=== PATIENT | female | born 1935 | race Caucasian/White ===

== ENCOUNTER 2016-11-08 21:14 | Inpatient (IN) | payer OTHER, BC ==
[~2016-11-08] VITALS: Ht 154.9 cm; Wt 59.3 kg
[~2016-11-08 21:14] MED LIST: ALEN70TA2 PO; ASPI1TAB83 PO; ATOR-54 PO; BROM0.0911 OP; CHOL100010 PO; COEN150C PO; DIGO0.1267 PO; FURO20TA PO; GARL400T4 PO; GLIP-172 PO; LISI10TA PO; LORATAB PO; METF500T PO; METO100T44 PO; MULT-614 PO; NTRGSL4 UT; OFLO0.3S OP; OMEG-112 PO; PRED1SUS3; PRED1SUS3 OPL
[2016-11-08] MEDS ORDERED: SODIUM CHLORIDE 0.9% 1000ML 1,000 ML IV STA (21:52)
[2016-11-08] MEDS ORDERED: MoRPHine SULFATE 2 MG/ML CARP IV STA (21:52)
[2016-11-08] MEDS ORDERED: ONDANSETRON INJ 2 MG/ML 2 ML VIAL IV STA (21:52)
[2016-11-08] MEDS ORDERED: ACETAMINOPHEN 325 MG TAB PO STA (21:52)
[2016-11-08] MEDS ORDERED: SODIUM CHLORIDE 0.9% 250ML 250 ML IV STA (21:52)
[2016-11-08] MEDS ORDERED: ALBUT/IPRATROP 3MG/0.5MG NEB 3 ML VIAL INH STA (21:56)
[2016-11-08] MEDS ORDERED: LABETALOL HCL IV 5 MG/ML 20ML IV STA (21:57)
--- NOTE | 2016-11-08 21:57 | EMERGENCY ROOM VISIT NOTE ---
History Report prepared by Joana: Dorothy Gutierrez Under the Supervision of: Dr. Zulema Jaramillo M.D. First contact with patient: 21:36 Chief Complaint: ILLNESS Stated Complaint: ILLNESS, COUGH, HEADACHE History of Present Illness The patient is a 81 year old female who presents to the Emergency Room with complaints of a worsening illness for the past 3 weeks. She reports a sore throat, cough, fever, and headache. She states that her headache was worse today. Her pain is located in the front of her head, and she rates it as a 6/10 in severity. She started shaking this evening and states that she could barely talk. She was brought to the ED by ambulance. She denies any neck pain, nausea, abdominal pain, back pain, and shortness of breath. Six weeks ago the patient had a bladder stent placed. She became septic shortly afterwards. She states that these symptoms feel similar to the symptoms she experienced with sepsis. The bladder stent is no longer in place. She had a flu shot this year. Source of History: patient, family Onset: 3 weeks ago Position: other (global) Symptom Intensity: 6/10 Quality: other (illness) Timing: worsening Associated Symptoms: + cough, + fevers, + headache, + sorethroat, No SOB, No abdominal pain, No back pain, No nausea, No neck pain Review of Systems See HPI for pertinent positives & negatives. A total of 10 systems reviewed and were otherwise negative. Past Medical & Surgical Medical Problems: (1) CAD (coronary artery disease) (2) CLL (chronic lymphocytic leukemia) (3) DM2 (diabetes mellitus, type 2) (4) History of left heart catheterization (LHC) (5) HLD (hyperlipidemia) (6) HTN (hypertension) (7) Hydronephrosis (8) Osteoporosis (9) Paroxysmal a-fib (10) Pre-syncope Family History Non contributory d/t age Social History Smoking Status: Never Smoker Marital Status: Occupation Status: retired Current/Historical Medications Scheduled Alendronate Sodium (Fosamax), 1 TAB PO WK Aspirin (Aspirin), 1 TAB PO HS Atorvastatin (Lipitor), 40 MG PO QPM Cholecalciferol (Vitamin D), 1,000 INTER.UNIT PO DAILY AT LUNCH Coenzyme Q10 (Ubidecarenone) (Co Q-10), 150 MG PO QPM Furosemide (Lasix), 1 TAB PO QAM Garlic-Calcium (Garlic), 500 MG PO DAILY AT NOON Glipizide (Glipizide Xl), 2.5 MG PO DAILY AT LUNCH Lisinopril (Prinivil), 15 MG PO BID Loratadine (Loratadine Allergy Relief), 10 MG PO QAM Metformin Hcl (Glucophage), 1 TAB PO BID Metoprolol Succ (Toprol Xl) (Toprol-Xl ), 100 MG PO QAM Multiple Vitamins W/ Minerals (Centrum Silver Ultra Wome), 1 TAB PO DAILY AT NOON [id number] Ethyl Esters ([place]-3), 1 CAP PO DAILY AT LUNCH Scheduled PRN Nitroglycerin (Nitrostat), 1 TAB UT UD PRN for Chest Pain Allergies Coded Allergies: No Known Allergies (Unverified , 11/08/16) Physical Exam Vital Signs Date Time Temp Pulse Resp B/P Pulse Ox O2 Delivery O2 Flow Rate FiO2 11/09/16 01:52 72 18 119/58 93 Room Air 11/09/16 00:32 71 18 124/80 94 Room Air 11/08/16 23:41 75 11/08/16 23:37 74 20 136/78 92 Room Air 11/08/16 23:36 93 16 136/78 95 Room Air 11/08/16 23:01 76 18 177/84 99 Nebulizer 11/08/16 21:18 37.7 18 16 215/95 91 Room Air Physical Exam Vital signs reviewed. General: Elderly well-appearing 81 year old female, subtle tremor, warm to touch , in no significant distress. HEENT: No scleral icterus, PERRLA, neck supple. Atraumatic. Cardiovascular: Regular rate and rhythm, no extra sounds. Pulmonary: Clear to auscultation bilaterally, normal work of breathing. Abdomen: Soft, nontender, nondistended, positive bowel sounds. Musculoskeletal: Atraumatic, no peripheral edema. Neurologic: Patient awake alert and oriented x 3, full strength in all 4 extremities. Cranial nerves 2 through 12 grossly intact. Skin: Warm, dry, no rash Medical Decision & Procedures ER Provider Diagnostic Interpretation: Radiology results as stated below per my review and radiologist interpretation: CHEST ONE VIEW PORTABLE HISTORY: rigors, fever COMPARISON: Chest 04/03/2016. FINDINGS: No pneumothorax. No pleural effusions. The heart remains mildly enlarged. Tortuous thoracic aorta. Patchy density within the right lung base. The left lung is essentially clear. No evidence for pulmonary edema. Upper left tracheal deviation remains unchanged. This favors a right-sided goiter. IMPRESSION: Developing patchy densities within the base of the right lower lobe. This likely represents a pneumonia. Recommend follow up to resolution. Stable cardiomegaly. Electronically signed by: Fuad George M.D. 11/08/2016 10:[address] HEAD: No ICH, mass effect or edema. No evidence of acute cortical stroke. Periventricular small vessel ischemic change. 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 Air-fluid levels bilateral maxillary sinuses and right sphenoid sinus suspicious for sinusitis. Radiologist Kayli Noel M.D. Laboratory Results Test 11/08/16 00:35 11/08/16 22:05 11/08/16 22:14 11/08/16 23:00 Urine Color YELLOW Urine Appearance CLEAR (CLEAR) Urine pH 8.0 (4.5-7.5) Urine Specific Graham 1.001 (1.000-1.030) Urine Protein NEG (NEG) Urine Glucose (UA) NEG (NEG) Urine Ketones NEG (NEG) Urine Occult Blood NEG (NEG) Urine Nitrite NEG (NEG) Urine Bilirubin NEG (NEG) Urine Urobilinogen NEG (NEG) Urine Leukocyte Esterase TRACE (NEG) Urine WBC (Auto) 0 /hpf (0-5) Urine RBC (Auto) 0-4 /hpf (0-4) Urine Hyaline Casts (Auto) 0 /lpf (0-5) Urine Epithelial Cells (Auto) 0-5 /lpf (0-5) Urine Bacteria (Auto) NEG (NEG) Immature Granulocyte % (Auto) 0.5 % White Blood Count 25.26 K/uL (4.8-10.8) Red Blood Count 4.23 M/uL (4.2-5.4) Hemoglobin 13.7 g/dL (12.0-16.0) Hematocrit 39.5 % (37-47) Mean Corpuscular Volume 93.4 fL (80-100) Mean Corpuscular Hemoglobin 32.4 pg (25-34) Mean Corpuscular Hemoglobin Concent 34.7 g/dl (32-36) Platelet Count 158 K/uL (130-400) Mean Platelet Volume 10.1 fL (7.4-10.4) Neutrophils (%) (Auto) 49.0 % Lymphocytes (%) (Auto) 45.6 % Monocytes (%) (Auto) 4.0 % Eosinophils (%) (Auto) 0.7 % Basophils (%) (Auto) 0.2 % Neutrophils # (Auto) 12.41 K/uL (1.4-6.5) Lymphocytes # (Auto) 11.51 K/uL (1.2-3.4) Monocytes # (Auto) 1.00 K/uL (0.11-0.59) Eosinophils # (Auto) 0.18 K/uL (0-0.5) Basophils # (Auto) 0.04 K/uL (0-0.2) Immature Granulocyte # (Auto) 0.12 K/uL (0.00-0.02) Smudge Cells PRESENT Magnesium Level 2.1 mg/dl (1.8-2.4) Total Bilirubin 0.6 mg/dl (0.2-1) Direct Bilirubin 0.1 mg/dl (0-0.2) Aspartate Amino Transf (AST/SGOT) 24 U/L (15-37) Alanine Aminotransferase (ALT/SGPT) 50 U/L (12-78) Alkaline Phosphatase 80 U/L (45-117) Total Protein 7.7 gm/dl (6.4-8.2) Albumin 4.4 gm/dl (3.4-5.0) Bedside Lactic Acid Venous 1.90 mmol/L (0.90-1.70) Influenza Type A Antigen Neg for Influ A (NEG) Influenza Type B Antigen Neg for Influ B (NEG) Laboratory results per my review. Medications Administered Medications (Trade) Dose Ordered Sig/Julián Route Start Time Stop Time Status Last Admin Dose Admin Sodium Chloride 250 ml @ 999 mls/hr Q16M STAT IV 11/08/16 21:52 11/08/16 22:07 DC 11/08/16 21:52 999 MLS/HR Sodium Chloride (Nss 1000ml) 1,000 ml @ 125 mls/hr Q8H STAT IV 11/08/16 21:52 11/09/16 03:45 DC 11/08/16 22:46 125 MLS/HR Acetaminophen (Tylenol Tab) 650 mg NOW STAT PO 11/08/16 21:52 11/08/16 21:55 DC 11/08/16 22:43 650 MG Albuterol/ Ipratropium (Duoneb) 3 ml NOW STAT INH 11/08/16 21:56 11/08/16 21:57 DC 11/08/16 22:43 3 ML Labetalol HCl (Normodyne IV) 10 mg NOW STAT IV 11/08/16 21:57 11/08/16 21:58 DC 11/08/16 22:56 10 MG Piperacillin Sod/ Tazobactam Sod (Zosyn Iv) 4.5 gm NOW STAT IV 11/08/16 22:48 11/08/16 22:50 DC 11/08/16 23:34 4.5 GM Levofloxacin (Levaquin / D5W) 750 mg NOW ONCE IV 11/08/16 23:00 11/08/16 23:01 DC 11/09/16 00:22 750 MG Acetaminophen (Tylenol Tab) 650 mg Q4H PRN PO 11/09/16 01:30 12/09/16 01:29 11/09/16 08:31 650 MG ECG Indication: other Rate (beats per minute): 74 Rhythm: normal sinus Findings: no acute ischemic change, no ectopy ED Course 2144: Past medical records reviewed. The patient was evaluated in room A3. A complete history and physical examination was performed. 2152: Tylenol tab 650 mg PO, Zofran 4 mg IV, Morphine sulfate 2 mg IV, NSS 1000 ml @ 125 mls/hr IV, NSS 250 ml @ 999 mls/hr IV 2156: Duoneb 3 ml INH 2157: Labetalol HCl 10 mg IV 2248: Zosyn 4.5 gm IV 2300: Levofloxacin 750 mg IV 0015: I reassessed the patient at this time. She is resting comfortably. I discussed the results and treatment plan with the patient. I answered all pertaining questions that she had. She expressed understanding and verbalized agreement. 0025: I spoke with Dr. Simpson. We discussed the patients results and treatment plan. The patient will be evaluated by the [facility] Hospitalist Group for further management. Medical Decision Fever: Influenza, other viral illness, pneumonia, urinary tract infection, metabolic abnormality, medication effect, cellulitis, meningitis, intra-abdominal source. This pt was evaluated and appeared to be in no distress. IV access was obtained and lab work was drawn. PT was placed on the rfid developer. Pt was hydrated with NSS, given tylenol for fever. Pt is noted to be hypertensive and took her meds today. She notes her BP has been running high at home. Pt was given a duoneb tx. CXR is significant for pulmonary infiltrate. CT head reveals sinusitis. Lab work reveals a leukocytosis likely d/t CLL and infection. Pt was tx with IV levaquin and zosyn. She was d/w the hospitalist for further management. Pt and family are aware of plan and agree. Consults Time Called: 0020 Consulting Physician: Calvin Returned Call: [address] Simpson. We discussed the patients results and treatment plan. The patient will be evaluated by the [facility] Hospitalist Group for further management. Impression Primary Impression: SIRS (systemic inflammatory response syndrome) Additional Impressions: Pneumonia, Sinusitis, CLL (chronic lymphocytic leukemia), HTN (hypertension) Scribe Attestation The scribe's documentation has been prepared under my direction and personally reviewed by me in its entirety. I confirm that the note above accurately reflects all work, treatment, procedures, and medical decision making performed by me. Departure Information Dispostion Being Evaluated By Hospitalist Referrals ROBERT BEST M.D. (PCP) Patient Instructions A Signature Page, My [facility]
--- NOTE | 2016-11-08 22:28 | DIAGNOSTIC IMAGING REPORT ---
CHEST ONE VIEW PORTABLE HISTORY: rigors, fever COMPARISON: Chest 04/03/2016. FINDINGS: No pneumothorax. No pleural effusions. The heart remains mildly enlarged. Tortuous thoracic aorta. Patchy density within the right lung base. The left lung is essentially clear. No evidence for pulmonary edema. Upper left tracheal deviation remains unchanged. This favors a right-sided goiter. IMPRESSION: Developing patchy densities within the base of the right lower lobe. This likely represents a pneumonia. Recommend follow up to resolution. Stable cardiomegaly. Electronically signed by: Fuad George M.D. 11/08/2016 10:26 PM
[2016-11-08 22:37] LABS: HEMATOCRIT 39.5 % (37-47); MEAN CELL VOLUME 93.4 fL (80-100); MEAN CORPUSCULAR HEMOGLOBIN 32.4 pg (25-34); MEAN CORPUSCULAR HGB CONC 34.7 g/dl (32-36); MEAN PLATELET VOLUME 10.1 fL (7.4-10.4); PLATELET COUNT 158 K/uL (130-400); RED BLOOD COUNT 4.23 M/uL (4.2-5.4); WHITE BLOOD COUNT 25.26 K/uL (4.8-10.8)
[2016-11-08] MEDS ORDERED: PIPERACILLIN/TAZOBACTAM 4.5 GM/100ML D5W IV STA (22:48)
[2016-11-08 22:58] LABS: BUN/CREATININE RATIO 15.9 (10-20); CALCIUM 9.5 mg/dl (8.5-10.1); CREATININE 0.87 mg/dl (0.60-1.20); MAGNESIUM 2.1 mg/dl (1.8-2.4); POTASSIUM 3.9 mmol/L (3.5-5.1)
[2016-11-08] MEDS ORDERED: LEVAQUIN 750MG / 150ML D5W IV ONE (23:00)
[2016-11-08 23:14] LABS: BASO % 0.2 %; BASO ABS # 0.04 K/uL (0-0.2); COMPLETE YES; EOS % 0.7 %; IG% 0.5 %; LYMPH % 45.6 %; LYMPH ABS # 11.51 K/uL (1.2-3.4); SMUDGE CELLS PRESENT
[2016-11-09 00:48] LABS: URINE APPEARANCE CLEAR (CLEAR); URINE BILIRUBIN NEG (NEG); URINE COLOR YELLOW; URINE EPITHELIAL CELL AUTO 0-5 /lpf (0-5); URINE NITRITE NEG (NEG); URINE SPECIFIC GRAVITY 1.001 (1.000-1.030); UROBILINOGEN NEG (NEG); ZZUR CULT IF INDIC CLEAN CATCH NO
[2016-11-09 00:54] LABS: MANUAL MICROSCOPIC REQUIRED? NO; REVIEW REQ? NO
[2016-11-09] MEDS ORDERED: MAGNESIUM HYDROXIDE SUSP 30 ML UDC PO PRN (01:30)
[2016-11-09] MEDS ORDERED: ONDANSETRON INJ 2 MG/ML 2 ML VIAL IV PRN (01:30)
[2016-11-09] MEDS ORDERED: POLYETHYLENE (MIRALAX) 17 GM PACK PO PRN (01:30)
[2016-11-09] MEDS ORDERED: ALUMINUM/MAGNESIUM/SIMETH (MAALOX MAX) 30 ML UDC PO PRN (01:30)
[2016-11-09] MEDS ORDERED: ACETAMINOPHEN 325 MG TAB PO PRN (01:30)
--- NOTE | 2016-11-09 01:41 | History and Physical ---
History & Physical Date & Time of Service: Nov 09, 2016 at 01:31 Chief Complaint: Illness, Cough, Headache Primary Care Physician: Maria Garcia M.D. History of Present Illness Source: patient, family, clinic records, hospital records This is an 81 year old female with PMH of CAD s/p stents, CLL, HTN, HLD, DM2 presents with cough and feeling weak for 3 days. Was in her usual state of health last week, then developed this cough, no sputum production; noted to have some chills - states that she has had these same types of chills in the past when she had sepsis secondary to infected kidney stone; she thought it may be an infection or flu due to the chills. Also c/o headache for the past few days. Presented to the ER; had w/up done showing likely pneumonia on CXR - given abx and IVFs. Her WBC was elevated; patient states that due to her CLL her WBC usually runs around 18-20k. Denies chest pain, nausea/vomiting/diarrhea, no other symptoms to note. Past Medical/Surgical History Medical Problems: (1) CAD (coronary artery disease) Status: Chronic (2) CLL (chronic lymphocytic leukemia) Status: Chronic (3) DM2 (diabetes mellitus, type 2) Status: Chronic (4) History of left heart catheterization (LHC) Permanent Comment: Stent to LAD 2004 Status: Chronic (5) HLD (hyperlipidemia) Status: Chronic (6) HTN (hypertension) Status: Chronic (7) Osteoporosis Status: Chronic (8) Paroxysmal a-fib Status: Chronic Family History Non contributory d/t age Social History Smoking Status: Never Smoker Housing status: lives alone Occupational Status: retired Multi-Drug Resistant Organisms History of MDRO: No Allergies Coded Allergies: No Known Allergies (Unverified , 11/08/16) Home Medications Scheduled Alendronate Sodium (Fosamax), 1 TAB PO WK Aspirin (Aspirin), 1 TAB PO HS Atorvastatin (Lipitor), 40 MG PO QPM Cholecalciferol (Vitamin D), 1,000 INTER.UNIT PO DAILY AT LUNCH Coenzyme Q10 (Ubidecarenone) (Co Q-10), 150 MG PO QPM Furosemide (Lasix), 1 TAB PO QAM Garlic-Calcium (Garlic), 500 MG PO DAILY AT NOON Glipizide (Glipizide Xl), 2.5 MG PO DAILY AT LUNCH Lisinopril (Prinivil), 15 MG PO BID Loratadine (Loratadine Allergy Relief), 10 MG PO QAM Metformin Hcl (Glucophage), 1 TAB PO BID Metoprolol Succ (Toprol Xl) (Toprol-Xl ), 100 MG PO QAM Multiple Vitamins W/ Minerals (Centrum Silver Ultra Wome), 1 TAB PO DAILY AT NOON [id number] Ethyl Esters ([place]-3), 1 CAP PO DAILY AT LUNCH Scheduled PRN Nitroglycerin (Nitrostat), 1 TAB UT UD PRN for Chest Pain Review of Systems Constitutional: + chills, + fatigue, + weakness, No fever, No sweats, No weight loss Eyes: No worsening of vision ENT: + problem reported (+headache) Respiratory: + cough, No dyspnea at rest, No dyspnea on exertion, No hemoptysis , No shortness of breath, No sputum, No wheezing Cardiovascular: No chest pain, No edema, No orthopnea, No palpitations Abdomen: No GI bleeding, No constipation, No diarrhea, No nausea, No pain, No vomiting Musculoskeletal: No joint pain, No muscle pain Genitourinary - Female: No dysuria, No hematuria, No urinary frequency, No urinary incontinence, No urinary retention, No urinary urgency Neurologic: No memory loss Psychiatric: No depression symptoms Endocrine: + fatigue Hematologic / Lymphatic: No abnormal bleeding/bruising Integumentary: No rash Allergic / Immunologic: No environmental allergies, No seasonal allergies Physical Exam Vital Signs Date Time Temp Pulse Resp B/P Pulse Ox O2 Delivery O2 Flow Rate FiO2 11/09/16 00:32 71 18 124/80 94 Room Air 11/08/16 23:41 75 11/08/16 23:37 74 20 136/78 92 Room Air 11/08/16 23:36 93 16 136/78 95 Room Air 11/08/16 23:01 76 18 177/84 99 Nebulizer 11/08/16 21:18 37.7 18 16 215/95 91 Room Air General Appearance: no apparent distress Head: normocephalic, atraumatic Eyes: normal inspection ENT: hearing grossly normal Neck: supple Respiratory/Chest: lungs clear, normal breath sounds, no respiratory distress, no accessory muscle use Cardiovascular: regular rate, rhythm, no edema, no murmur Abdomen/GI: normal bowel sounds, non tender, soft Extremities/Musculoskelatal: no calf tenderness, normal capillary refill, no pedal edema 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6 % Monocytes (%) (Auto) 4.0 % Eosinophils (%) (Auto) 0.7 % Basophils (%) (Auto) 0.2 % Neutrophils # (Auto) 12.41 1.4-6.5 K/uL Lymphocytes # (Auto) 11.51 1.2-3.4 K/uL Monocytes # (Auto) 1.00 0.11-0.59 K/uL Eosinophils # (Auto) 0.18 0-0.5 K/uL Basophils # (Auto) 0.04 0-0.2 K/uL RDW Standard Deviation 43.7 36.4-46.3 fL RDW Coefficient of Variation 12.9 11.5-14.5 % Immature Granulocyte % (Auto) 0.5 % Immature Granulocyte # (Auto) 0.12 0.00-0.02 K/uL Smudge Cells PRESENT Sodium Level 143 136-145 mmol/L Potassium Level 3.9 3.5-5.1 mmol/L Chloride Level 103 98-107 mmol/L Carbon Dioxide Level 25 21-32 mmol/L Anion Gap 15.0 3-11 mmol/L Blood Urea Nitrogen 14 7-18 mg/dl Creatinine 0.87 0.60-1.20 mg/dl Est Creatinine Clear Calc Drug Dose 38.2 ml/min Estimated GFR () 72.4 Estimated GFR (Non- 62.5 BUN/Creatinine Ratio 15.9 10-20 Random Glucose 148 70-99 mg/dl Calcium Level 9.5 8.5-10.1 mg/dl Magnesium Level 2.1 1.8-2.4 mg/dl Total Bilirubin 0.6 0.2-1 mg/dl Direct Bilirubin 0.1 0-0.2 mg/dl Aspartate Amino Transf (AST/SGOT) 24 15-37 U/L Alanine Aminotransferase (ALT/SGPT) 50 12-78 U/L Alkaline Phosphatase 80 45-117 U/L Total Protein 7.7 6.4-8.2 gm/dl Albumin 4.4 3.4-5.0 gm/dl Bedside Lactic Acid Venous 1.90 0.90-1.70 mmol/L Influenza Type A Antigen Neg for Influ A NEG Influenza Type B Antigen Neg for Influ B NEG Microbiology Results 11/08/16 Blood Culture, Received Pending 11/08/16 Blood Culture, Received Pending Diagnostic Radiology CHEST ONE VIEW PORTABLE HISTORY: rigors, fever COMPARISON: Chest 04/03/2016. FINDINGS: No pneumothorax. No pleural effusions. The heart remains mildly enlarged. Tortuous thoracic aorta. Patchy density within the right lung base. The left lung is essentially clear. No evidence for pulmonary edema. Upper left tracheal deviation remains unchanged. This favors a right-sided goiter. IMPRESSION: Developing patchy densities within the base of the right lower lobe. This likely represents a pneumonia. Recommend follow up to resolution. Stable cardiomegaly. EKG NSR @70bpm Impression Assessment and Plan This is an 81 year old female with PMH of CAD s/p stents, CLL, HTN, HLD, DM2 presents with cough and feeling weak for 3 days. Community Acquired Pneumonia -->patient presents with cough, leukocytosis, low grade fever -->CXR shows Developing patchy densities within the base of the right lower lobe. This likely represents a pneumonia. Recommend follow up to resolution. Stable cardiomegaly. -->WBC elevated greater than at baseline -->will do Rocephin + Azithromycin -->IVFs given in the ER -->repeat CXR in 1-2 days Leukocytosis -->likely related to CLL -->patient recalls WBC being closer to 18-20k -->possibly related to infection as above CAD s/p stents -->denies chest pain, at baseline -->continue ASA, b-vin, statin HTN -->presented with >200 systolically -->has now been controlled, continue b-vin, YANELIS-I DM2 -->hold oral agents -->sliding scale -->hypoglycemia protocol in place DVT ppx -->subq heparin FULL CODE VTE Prophylaxis VTE Risk Assessment Done? Y/N: Yes Risk Level: Moderate
[2016-11-09] MEDS ORDERED: GLUCAGON FOR INJ 1 MG VIAL SQ PRN (01:45)
[2016-11-09] MEDS ORDERED: GLUCOSE 10 TABS/TUBE PO PRN (01:45)
[2016-11-09] MEDS ORDERED: DEXTROSE 50% 50 ML SYR IV PRN (01:45)
[2016-11-09] MEDS ORDERED: GLUCOSE 40% GEL 15 GM TUBE PO PRN (01:45)
[2016-11-09 02:45] VITALS: BP 152/74; PULSE 70; TEMP 36.6; O2SAT 93; Ht 154.9 cm; Wt 59.3 kg
[2016-11-09] MEDS ORDERED: AZITHROMYCIN IV 500 MG in DEXTROSE 5% 250ML 250 ML IV ONE (04:00)
--- NOTE | 2016-11-09 06:33 | DIAGNOSTIC IMAGING REPORT ---
CT OF THE HEAD WITHOUT CONTRAST CLINICAL HISTORY: Headache. COMPARISON STUDY: No previous studies for comparison. CT DOSE: 537.48 mGy.cm TECHNIQUE: Helical axial images of the head were obtained without IV contrast. Automated exposure control was utilized for the study. FINDINGS: No acute intracranial hemorrhage, midline shift or mass effect is present. Ventricular system is unremarkable for age. The basilar cisterns are patent. There are no extra-axial collections. Finley-white differentiation is maintained. A hypodensity within the right caudate nucleus and internal capsule suggests a lacunar infarct which is likely old. There are no findings to suggest acute dural sinus thrombosis or acute territorial infarct. There are no calvarial abnormalities. There are air-fluid levels within the bilateral maxillary sinuses as well as the right sphenoid sinus. There is trace fluid within the left mastoid air cells. IMPRESSION: 1. No acute intracranial findings. 2. Air-fluid levels within the bilateral maxillary sinuses and right sphenoid sinus suggestive of acute sinusitis. Electronically signed by: Luis Angel Shaffer M.D. 11/09/2016 6:32 AM
[2016-11-09] MEDS: CEFTRIAXONE SOD INJ 1 GM in DEXTROSE 5% ADD-VANTAGE 50ML 50 ML IV SCH (06:43)
[2016-11-09 07:52] LABS: HEMATOCRIT 35.8 % (37-47); MEAN CELL VOLUME 93.7 fL (80-100); MEAN CORPUSCULAR HEMOGLOBIN 32.2 pg (25-34); MEAN CORPUSCULAR HGB CONC 34.4 g/dl (32-36); MEAN PLATELET VOLUME 9.9 fL (7.4-10.4); PLATELET COUNT 122 K/uL (130-400); RED BLOOD COUNT 3.82 M/uL (4.2-5.4); WHITE BLOOD COUNT 17.68 K/uL (4.8-10.8)
[2016-11-09 07:58] LABS: INR 1.2 (0.9-1.1); PROTHROMBIN TIME (PATIENT) 12.4 SECONDS (9.0-12.0)
[2016-11-09 08:11] VITALS: BP 146/75; PULSE 67; TEMP 36.8; O2SAT 95
[2016-11-09 08:17] LABS: BUN/CREATININE RATIO 14.7 (10-20); CALCIUM 8.7 mg/dl (8.5-10.1); CREATININE 0.76 mg/dl (0.60-1.20); POTASSIUM 3.8 mmol/L (3.5-5.1)
[2016-11-09 08:28] VITALS: BP 172/72; PULSE 66
[2016-11-09] MEDS: LORATADINE 10 MG TAB PO SCH (08:29)
[2016-11-09] MEDS: METOPROLOL SUCC 50MG EXT REL TAB PO SCH (08:30)
[2016-11-09] MEDS: LISINOPRIL 10 MG TAB PO SCH ×2 (08:30→19:52)
[2016-11-09] MEDS: INSULIN ASPART 100 UNITS/ML 3 ML PEN SC SCH ×4 (08:58→20:23)
[2016-11-09] MEDS: HEPARIN SOD 5000 UNIT/0.5 ML CARP SQ SCH ×2 (13:36→20:30)
--- NOTE | 2016-11-09 14:54 | Progress Note ---
Internal Med Progress Note Date of Service: Nov 09, 2016. Provider Documentation: SUBJECTIVE: Patient is interviewed and examined at bedside. She reports cough with minimal expectoration and has headache which is improving. Denies any chest pain, SOB, wheezing. OBJECTIVE: Vital Signs-as noted below General Appearance: no apparent distress, moderately built and nourished Head: normocephalic, atraumatic Eyes: normal inspection ENT: hearing grossly normal Neck: supple, No JVD, Trachea midline Respiratory/Chest: Mild crepitations at Right lower base. 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 ASSESSMENT & PLAN: Patient is an 81 Yr old female with PMH of CAD s/p stents, CLL, HTN, HLD, DM II presented with cough with expectoration, headache, generalized weakness, low grade fever for 3 days. She had leukocytosis and CXR showed findings suggestive of Pneumonia. Community Acquired Pneumonia Continue IV antibiotics, Rocephin and Azithromycin Oxygen Support PRN Leukocytosis more than her baseline (H/O CLL) Influenza test:Negative FU blood cultures Leukocytosis Secondary to CLL and Pneumonia Baseline White count is about 18-20k Monitor CAD s/p stents Stable Denies any chest pain, Continue ASA, BB, statin HTN Mildly elevated Headache likely related to HTN Continue home medications DM II On ISS, Accu checks Hold home medications for now DVT px Heparin SQ Code Status: Full code Disposition: Plan to discharge tomorrow if stable Vital Signs: Date Time Temp Pulse Resp B/P Pulse Ox O2 Delivery O2 Flow Rate FiO2 11/09/16 08:28 66 172/72 11/09/16 08:11 36.8 67 18 146/75 95 Room Air 11/09/16 07:42 Room Air 11/09/16 02:45 36.6 70 20 152/74 93 Room Air 11/09/16 01:52 72 18 119/58 93 Room Air 11/09/16 00:32 71 18 124/80 94 Room Air 11/08/16 23:41 75 11/08/16 23:37 74 20 136/78 92 Room Air 11/08/16 23:36 93 16 136/78 95 Room Air 11/08/16 23:01 76 18 177/84 99 Nebulizer 11/08/16 21:18 37.7 18 16 215/95 91 Room Air Lab Results: Results Past 24 Hours Test 11/08/16 22:05 11/08/16 22:14 11/08/16 23:00 11/09/16 07:20 Range/Units White Blood Count 25.26 17.68 4.8-10.8 K/uL Red Blood Count 4.23 3.82 4.2-5.4 M/uL Hemoglobin 13.7 12.3 12.0-16.0 g/dL Hematocrit 39.5 35.8 37-47 % Mean Corpuscular Volume 93.4 93.7 80-100 fL Mean Corpuscular Hemoglobin 32.4 32.2 25-34 pg Mean Corpuscular Hemoglobin Concent 34.7 34.4 32-36 g/dl Platelet Count 158 122 130-400 K/uL Mean Platelet Volume 10.1 9.9 7.4-10.4 fL Neutrophils (%) (Auto) 49.0 % Lymphocytes (%) (Auto) 45.6 % Monocytes (%) (Auto) 4.0 % Eosinophils (%) (Auto) 0.7 % Basophils (%) (Auto) 0.2 % Neutrophils # (Auto) 12.41 1.4-6.5 K/uL Lymphocytes # (Auto) 11.51 1.2-3.4 K/uL Monocytes # (Auto) 1.00 0.11-0.59 K/uL Eosinophils # (Auto) 0.18 0-0.5 K/uL Basophils # (Auto) 0.04 0-0.2 K/uL RDW Standard Deviation 43.7 44.6 36.4-46.3 fL RDW Coefficient of Variation 12.9 13.1 11.5-14.5 % Immature Granulocyte % (Auto) 0.5 % Immature Granulocyte # (Auto) 0.12 0.00-0.02 K/uL Smudge Cells PRESENT Sodium Level 143 142 136-145 mmol/L Potassium Level 3.9 3.8 3.5-5.1 mmol/L Chloride Level 103 108 98-107 mmol/L Carbon Dioxide Level 25 24 21-32 mmol/L Anion Gap 15.0 10.0 3-11 mmol/L Blood Urea Nitrogen 14 11 7-18 mg/dl Creatinine 0.87 0.76 0.60-1.20 mg/dl Est Creatinine Clear Calc Drug Dose 38.2 48.0 ml/min Estimated GFR () 72.4 85.3 Estimated GFR (Non- 62.5 73.6 BUN/Creatinine Ratio 15.9 14.7 10-20 Random Glucose 148 157 70-99 mg/dl Calcium Level 9.5 8.7 8.5-10.1 mg/dl Magnesium Level 2.1 1.8-2.4 mg/dl Total Bilirubin 0.6 0.2-1 mg/dl Direct Bilirubin 0.1 0-0.2 mg/dl Aspartate Amino Transf (AST/SGOT) 24 15-37 U/L Alanine Aminotransferase (ALT/SGPT) 50 12-78 U/L Alkaline Phosphatase 80 45-117 U/L Total Protein 7.7 6.4-8.2 gm/dl Albumin 4.4 3.4-5.0 gm/dl Bedside Lactic Acid Venous 1.90 0.90-1.70 mmol/L Influenza Type A Antigen Neg for Influ A NEG Influenza Type B Antigen Neg for Influ B NEG Prothrombin Time 12.4 9.0-12.0 SECONDS Prothromb Time International Ratio 1.2 0.9-1.1 Test 11/09/16 07:55 11/09/16 08:52 11/09/16 11:18 Range/Units Bedside Glucose 143 215 70-90 mg/dl Lactic Acid Level 2.0 0.4-2.0 mmol/L Microbiology Results 11/08/16 Blood Culture, Received Pending 11/08/16 Blood Culture, Received Pending
[2016-11-09 15:57] VITALS: BP 162/86; PULSE 61; TEMP 36.8; O2SAT 95
[2016-11-09] MEDS ORDERED: ASPIRIN 81 MG ECTAB PO SCH (21:00)
[2016-11-09] MEDS ORDERED: ATORVASTATIN 40 MG TAB PO SCH (21:00)
[2016-11-10 00:48] VITALS: BP 170/84; PULSE 66; TEMP 36.7; O2SAT 93
[2016-11-10] MEDS ORDERED: AZITHROMYCIN IV 250 MG in DEXTROSE 5% 250ML 250 ML IV SCH (04:00)
[2016-11-10] MEDS: HEPARIN SOD 5000 UNIT/0.5 ML CARP SQ SCH (06:00)
[2016-11-10] MEDS: CEFTRIAXONE SOD INJ 1 GM in DEXTROSE 5% ADD-VANTAGE 50ML 50 ML IV SCH (06:40)
[2016-11-10 07:12] LABS: HEMATOCRIT 36.8 % (37-47); MEAN CELL VOLUME 94.8 fL (80-100); MEAN CORPUSCULAR HGB CONC 34.8 g/dl (32-36); MEAN PLATELET VOLUME 9.9 fL (7.4-10.4); PLATELET COUNT 137 K/uL (130-400); RED BLOOD COUNT 3.88 M/uL (4.2-5.4); WHITE BLOOD COUNT 17.66 K/uL (4.8-10.8)
[2016-11-10 07:38] VITALS: BP 166/91; PULSE 59; TEMP 36.4; O2SAT 95
[2016-11-10 07:46] LABS: CREATININE 0.77 mg/dl (0.60-1.20)
[2016-11-10 07:47] LABS: BUN/CREATININE RATIO 17.7 (10-20); CALCIUM 8.9 mg/dl (8.5-10.1)
[2016-11-10 07:56] LABS: ESTIMATED AVERAGE GLUCOSE 154 mg/dl; HA1C FLAG Normal (Normal)
[2016-11-10] MEDS ORDERED: FUROSEMIDE 20 MG TAB PO SCH (08:00)
[2016-11-10 08:33] LABS: BASO % 0.2 %; BASO ABS # 0.04 K/uL (0-0.2); COMPLETE YES; EOS % 1.9 %; IG% 0.3 %; LYMPH % 60.8 %; LYMPH ABS # 10.73 K/uL (1.2-3.4); NEUT % 32.8 %; SMUDGE CELLS PRESENT
[2016-11-10 08:50] VITALS: PULSE 66
[2016-11-10] MEDS: LORATADINE 10 MG TAB PO SCH (09:00)
[2016-11-10] MEDS: METOPROLOL SUCC 50MG EXT REL TAB PO SCH (09:00)
[2016-11-10] MEDS: LISINOPRIL 10 MG TAB PO SCH (09:01)
[2016-11-10] MEDS: INSULIN ASPART 100 UNITS/ML 3 ML PEN SC SCH (09:06)
--- NOTE | 2016-11-10 09:20 | Progress Note ---
Internal Med Progress Note Date of Service: Nov 10, 2016. Provider Documentation: SUBJECTIVE: Patient is interviewed and examined at bedside. She states having minimal cough. Denies any chest pain, SOB. Feels well otherwise and ready to go home. 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 ASSESSMENT & PLAN: Patient is an 81 Yr old female with PMH of CAD s/p stents, CLL, HTN, HLD, DM II presented with cough with expectoration, headache, generalized weakness, low grade fever for 3 days. She had leukocytosis and CXR showed findings suggestive of Pneumonia. Community Acquired Pneumonia Continue IV antibiotics, Rocephin and Azithromycin Switch to PO antibiotics prior to DC Oxygen Support PRN, saturating well on RA. Leukocytosis now at baseline (H/O CLL) Influenza test:Negative FU blood cultures: negative to date Leukocytosis Secondary to CLL and Pneumonia Baseline White count is about 18-20k Monitor CAD s/p stents Stable Denies any chest pain, Continue ASA, BB, statin HTN Stable Headache resolved Continue home medications DM II On ISS, Accu checks Hold home medications for now DVT px Heparin SQ Code Status: Full code Disposition: Plan to discharge home today Vital Signs: Date Time Temp Pulse Resp B/P Pulse Ox O2 Delivery O2 Flow Rate FiO2 11/10/16 08:50 66 11/10/16 07:38 36.4 59 18 166/91 95 Room Air 11/10/16 00:55 Room Air 11/10/16 00:48 36.7 66 18 170/84 93 Room Air 11/09/16 15:57 36.8 61 18 162/86 95 Room Air 11/09/16 15:47 Room Air Lab Results: Results Past 24 Hours Test 11/09/16 11:18 11/09/16 16:28 11/09/16 20:12 11/10/16 06:42 Range/Units Bedside Glucose 215 126 164 70-90 mg/dl White Blood Count 17.66 4.8-10.8 K/uL Red Blood Count 3.88 4.2-5.4 M/uL Hemoglobin 12.8 12.0-16.0 g/dL Hematocrit 36.8 37-47 % Mean Corpuscular Volume 94.8 80-100 fL Mean Corpuscular Hemoglobin 33.0 25-34 pg Mean Corpuscular Hemoglobin Concent 34.8 32-36 g/dl Platelet Count 137 130-400 K/uL Mean Platelet Volume 9.9 7.4-10.4 fL Neutrophils (%) (Auto) 32.8 % Lymphocytes (%) (Auto) 60.8 % Monocytes (%) (Auto) 4.0 % Eosinophils (%) (Auto) 1.9 % Basophils (%) (Auto) 0.2 % Neutrophils # (Auto) 5.79 1.4-6.5 K/uL Lymphocytes # (Auto) 10.73 1.2-3.4 K/uL Monocytes # (Auto) 0.71 0.11-0.59 K/uL Eosinophils # (Auto) 0.33 0-0.5 K/uL Basophils # (Auto) 0.04 0-0.2 K/uL RDW Standard Deviation 45.9 36.4-46.3 fL RDW Coefficient of Variation 13.3 11.5-14.5 % Immature Granulocyte % (Auto) 0.3 % Immature Granulocyte # (Auto) 0.06 0.00-0.02 K/uL Smudge Cells PRESENT Sodium Level 141 136-145 mmol/L Potassium Level 4.0 3.5-5.1 mmol/L Chloride Level 107 98-107 mmol/L Carbon Dioxide Level 25 21-32 mmol/L Anion Gap 9.0 3-11 mmol/L Blood Urea Nitrogen 14 7-18 mg/dl Creatinine 0.77 0.60-1.20 mg/dl Est Creatinine Clear Calc Drug Dose 47.4 ml/min Estimated GFR () 83.9 Estimated GFR (Non- 72.4 BUN/Creatinine Ratio 17.7 10-20 Random Glucose 193 70-99 mg/dl Estimated Average Glucose 154 mg/dl Hemoglobin A1c 7.0 4.5-5.6 % Calcium Level 8.9 8.5-10.1 mg/dl Test 11/10/16 07:53 Range/Units Bedside Glucose 155 70-90 mg/dl
[2016-11-10] MEDS ORDERED: LEVO500T19 PO (09:28)
--- NOTE | 2016-11-10 09:34 | Discharge Instructions ---
Discharge Instructions Admission Reason for Admission: Pneumonia Discharge Discharge Diagnosis / Problem: Community acquired Pneumonia Discharge Goals Goal(s): Decrease discomfort, Improve function Activity Recommendations Activity Limitations: resume your previous activity Exercise/Sports Limitations: as tolerated . Instructions / Follow-Up Instructions / Follow-Up Follow up with on 11/14/16 at 12.50pm at the [facility] Complete the antibiotic course as prescribed for 7 days. Start taking on 11/11/16 Seek immediate medical attention if your develop any fever, chest pain, SOB, worsening cough Current Hospital Diet Patient's current hospital diet: Diabetes Type 2 Diet Discharge Diet Recommended Diet: Diabetes Type 2 Diet Pending Studies Studies pending at discharge: no Laboratory Results Hemoglobin A1c Test 11/10/16 06:42 Range/Units Estimated Average Glucose 154 mg/dl Hemoglobin A1c 7.0 H 4.5-5.6 % Medical Emergencies . Who to Call and When: Medical Emergencies: If at any time you feel your situation is an emergency, please call 911 immediately. . Non-Emergent Contact Non-Emergency issues call your: Primary Care Provider . . "Provider Documentation" section prepared by Delvis Pope. VTE Core Measure Inpt VTE Proph given/why not?: Unfractionated heparin SQ
--- NOTE | 2016-11-10 09:52 | Discharge Summary ---
Discharge Summary Admission Date: Nov 09, 2016 at 02:04 Discharge Date: Nov 10, 2016 Discharge Disposition: Home Principal Diagnosis: Community Acquired Pneumonia Secondary Diagnoses/Problems: Diabetes Mellitus II CLL P.Afib Hypertension Hyperlipidemia Osteoporosis Procedures: CT head: 1. No acute intracranial findings. 2. Air-fluid levels within the bilateral maxillary sinuses and right sphenoid sinus suggestive of acute sinusitis. CXR: Developing patchy densities within the base of the right lower lobe. This likely represents a pneumonia. Recommend follow up to resolution. Stable cardiomegaly. Medication Reconciliation New Medications: Levofloxacin (Levaquin) 500 Mg Tab 1 TAB PO DAILY for 7 Days, #7 TAB start taking on 11/11/16 Continued Medications: Alendronate Sodium (Fosamax) 70 Mg Tab 1 TAB PO WK MONDAY MORNING Aspirin (Aspirin) 81 Mg Tab 1 TAB PO HS Atorvastatin (Lipitor) 20 Mg Tab 40 MG PO QPM, TAB Cholecalciferol (Vitamin D) 1,000 Inter.unit Tab 1000 INTER.UNIT PO DAILY AT LUNCH, TAB Coenzyme Q10 (Ubidecarenone) (Co Q-10) 150 Mg Cap 150 MG PO QPM, CAP Furosemide (Lasix) 20 Mg Tab 1 TAB PO QAM Garlic-Calcium (Garlic) 1 Tab Tab 500 MG PO DAILY AT NOON Glipizide (Glipizide Xl) 2.5 Mg Tab 2.5 MG PO DAILY AT LUNCH Lisinopril (Prinivil) 10 Mg Tab 15 MG PO BID, TAB Loratadine (Loratadine Allergy Relief) 10 Mg Tab 10 MG PO QAM Metformin Hcl (Glucophage) 500 Mg Tab 1 TAB PO BID Metoprolol Succ (Toprol Xl) (Toprol-Xl ) 100 Mg Tabcr 100 MG PO QAM, TAB Multiple Vitamins W/ Minerals (Centrum Silver Ultra [place]) 1 Tab Tab 1 TAB PO DAILY AT NOON Nitroglycerin (Nitrostat) 0.4 Mg/1 Tab Subl 1 TAB UT UD PRN for Chest Pain [id number]-7-Ujjc Ethyl Esters ([place]-3) 1 Cap Cap 1 CAP PO DAILY AT LUNCH, CAP Admission Information HPI (per Admitting provider): This is an 81 year old female with PMH of CAD s/p stents, CLL, HTN, HLD, DM2 presents with cough and feeling weak for 3 days. Was in her usual state of health last week, then developed this cough, no sputum production; noted to have some chills - states that she has had these same types of chills in the past when she had sepsis secondary to infected kidney stone; she thought it may be an infection or flu due to the chills. Also c/o headache for the past few days. Presented to the ER; had w/up done showing likely pneumonia on CXR - given abx and IVFs. Her WBC was elevated; patient states that due to her CLL her WBC usually runs around 18-20k. Denies chest pain, nausea/vomiting/diarrhea, no other symptoms to note. 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 She had leukocytosis and CXR showed findings suggestive of Pneumonia. Her Influenza testing was negative. CT head was done as she complained of headache and it showed no acute intracranial pathology. Her leukocytosis is above her baseline white count which usually runs around 18-20K. Patient was diagnosed to have community acquired pneumonia and was treated with IV Azithromycin and Rocephin. Patient improved clinically with above management and was discharged home on oral Levaquin for 7 days. Advised to follow up with her PCP in 1 week and seek immediate medication attention, if her symptoms worsen or reoccur. Community Acquired Pneumonia Continue IV antibiotics, Rocephin and Azithromycin Switch to PO Levaquin prior to DC Oxygen Support PRN, saturating well on RA. Leukocytosis now at baseline (H/O CLL) Influenza test:Negative FU blood cultures: negative to date Leukocytosis Secondary to CLL and Pneumonia Baseline White count is about 18-20k Monitor CAD s/p stents Stable Denies any chest pain, Continue ASA, BB, statin HTN Stable Headache resolved Continue home medications DM II On ISS, Accu checks Hold home medications for now DVT px Heparin SQ Code Status: Full code Disposition: Plan to discharge home today Total time spent on discharge = This includes examination of the patient, discharge planning, medication reconciliation, and communication with other providers. Discharge Instructions Discharge Instructions Admission Reason for Admission: Pneumonia Discharge Discharge Diagnosis / Problem: Community acquired Pneumonia Discharge Goals Goal(s): Decrease discomfort, Improve function Activity Recommendations Activity Limitations: resume your previous activity Exercise/Sports Limitations: as tolerated . Instructions / Follow-Up Instructions / Follow-Up Follow up with on 11/14/16 at 12.50pm at the [facility] Complete the antibiotic course as prescribed for 7 days. Start taking on 11/11/16 Seek immediate medical attention if your develop any fever, chest pain, SOB, worsening cough Current Hospital Diet Patient's current hospital diet: Diabetes Type 2 Diet Discharge Diet Recommended Diet: Diabetes Type 2 Diet Pending Studies Studies pending at discharge: no Laboratory Results Hemoglobin A1c Test 11/10/16 06:42 Range/Units Estimated Average Glucose 154 mg/dl Hemoglobin A1c 7.0 H 4.5-5.6 % Medical Emergencies . Who to Call and When: Medical Emergencies: If at any time you feel your situation is an emergency, please call 911 immediately. . Non-Emergent Contact Non-Emergency issues call your: Primary Care Provider . . "Provider Documentation" section prepared by Delvis Pope. VTE Core Measure Inpt VTE Proph given/why not?: Unfractionated heparin SQ
[2016-11-10 10:16] VITALS: BP 152/82
[2016-11-10 11:13] VITALS: BP 152/82; PULSE 66; TEMP 36.4; O2SAT 95
== END 2016-11-10 11:45 | disposition home or self-care (01) | DRG 194 ==
LOC: ENRESERVDT → ENRESERVTM → EDBD 21:14 → C.EDA 21:16 → C.MS4W 11-09 02:04
PROVIDERS: ADMIT Family Medicine; ATTEND Internal Medicine
DX: J18.9 Pneumonia, unspecified organism (principal); C91.10 Chronic lymphocytic leukemia of B-cell type not having achieved remission; E11.9 Type 2 diabetes mellitus without complications; E78.5 Hyperlipidemia, unspecified; M81.0 Age-related osteoporosis without current pathological fracture; I48.0 Paroxysmal atrial fibrillation; D72.829 Elevated white blood cell count, unspecified; R51 Headache; I25.10 Atherosclerotic heart disease of native coronary artery without angina pectoris; I10 Essential (primary) hypertension; Z79.899 Other long term (current) drug therapy; Z79.82 Long term (current) use of aspirin; Z79.84 Long term (current) use of oral hypoglycemic drugs; Z79.83 Long term (current) use of bisphosphonates; Z95.5 Presence of coronary angioplasty implant and graft

== ENCOUNTER → 2016-11-30 | Outpatient (CLI) | payer OTHER, BC ==
[~2016-11-30] MED LIST changes: -BROM0.0911 OP; -DIGO0.1267 PO; -METO100T44 PO; +METO1TAB69 PO; -OFLO0.3S OP; -PRED1SUS3; -PRED1SUS3 OPL
--- NOTE | 2016-11-30 14:11 | DIAGNOSTIC IMAGING REPORT ---
CHEST 2 VIEWS ROUTINE CLINICAL HISTORY: PNEUMONIA COMPARISON STUDY: 11/08/2016 FINDINGS: The heart is mildly enlarged. There is aortic tortuosity/ectasia. There is no focal pulmonary consolidation. There is no failure. There are no pleural effusions.[ IMPRESSION: Mild cardiomegaly. No evidence of focal pulmonary consolidation Electronically signed by: Chente Lawrence M.D. 11/30/2016 2:10 PM Dictated Date/Time: 11/30/2016 2:09 PM
== END | disposition home or self-care (01) ==
LOC: C.RAD 13:17
PROVIDERS: ATTEND Internal Medicine
DX: J18.9 Pneumonia, unspecified organism (principal)